=== PATIENT | female | born 1980 | race African-American/Black ===

== ENCOUNTER 2022-10-27 04:05 | Day surgery (SDC) | payer BC ==
[2022-10-27] MEDS ORDERED: BUPIVACAINE HCL/PF 0.5% (5MG/ML) 10 ML VIAL ONE (08:00)
[2022-10-27] MEDS ORDERED: MIDAZOLAM HCL 2 MG/2 ML SINGLE DOSE VIAL ONE (09:45)
[2022-10-27] MEDS ORDERED: LIDOCAINE HCL/PF 2% SDV 5ML VIAL ONE (09:45)
[2022-10-27] MEDS ORDERED: ONDANSETRON 4 MG/2 ML VIAL ONE (09:45)
[2022-10-27] MEDS ORDERED: PROPOFOL 20 ML ONE (09:45)
[2022-10-27] MEDS ORDERED: DEXAMETHASONE SOD PHOSPHATE 4 MG/1 ML VIAL ONE (09:45)
[2022-10-27] MEDS ORDERED: FENTANYL CITRATE/PF 50 MCG/ML VIAL ONE ×2 (09:45→09:58)
[2022-10-27] MEDS ORDERED: BUPIVACAINE HCL/PF 0.5% (5MG/ML) 10 ML VIAL IJ ONE (10:05)
[2022-10-27] MEDS ORDERED: LIDOCAINE 1%/EPI 1:100000 (20 ML MULTI DOSE VIAL) IJ ONE (10:05)
[2022-10-27] MEDS ORDERED: KETOROLAC TROMETHAMINE 30 MG/1 ML VIAL ONE (10:17)
[2022-10-27] MEDS ORDERED: ONDANSETRON 4 MG/2 ML VIAL IVPUSH PRN (10:33)
[2022-10-27] MEDS ORDERED: oxyCODONE HCL 5 MG TABLET PO PRN (10:33)
[2022-10-27] MEDS ORDERED: LACTATED RINGERS SOLUTION 1,000 ML IV SCH (10:45)
[2022-10-27 10:50] VITALS: BMI 38.4
[2022-10-27 11:39] VITALS: RESP 20
[2022-10-27 13:34] VITALS: BP 140/84; PULSE 70; TEMP 97
== END 2022-10-27 13:15 | disposition home or self-care (01) ==
LOC: JASU-SURG 04:05
PROVIDERS: ATTEND Orthopaedic Surgery
PROC: 0SBD4ZZ Excision of Left Knee Joint, Percutaneous Endoscopic Approach (ICD-10-PCS; principal; 2022-10-27 10:00)
DX: M23.92 Unspecified internal derangement of left knee (principal); M23.232 Derangement of other medial meniscus due to old tear or injury, left knee
CPT/HCPCS: 81025; 94760